=== PATIENT | female | born 1960 | race Two or more races ===

== ENCOUNTER → 2018-01-18 | Outpatient (CLI) | payer OTHER ==
[~2018-01-18] MED LIST: ALBU90I INH; ALBU90OI; ALBU90OI61 INH; ALBUTEROL; Albuterol2.5 MG/0.5 HHN; CEPH500 PO; CIPR500 PO; CYCL10; CYCL10 PO; DIPH50 PO; DOC250 PO; HYDACE25S PR; HYDACE5 PO; HYDACE5325 PO; HYDCHL50 PO; IBUP800 PO; LEVFLO500 PO; LISHYD2025 PO; LISI10; LISI20 PO; METF500; METO100ER PO; METO50 PO; Mobic15 MG PO; NAPR500 PO; NAPR550 PO; OMEP20ER PO; OXYACE5T PO; PENVK500 PO; PRAV20 PO; PRED20 PO; RXALBOI INH; RXHYDACE PO; RXNAPNA550 PO; RXPROM25 PO; SULTRIDS PO; TRAM50 PO; Veetids 500500 MG PO
[2018-01-21 12:10] LABS: HPV Genotype 16 Not Detected (NOTDET); HPV Genotype 18 Not Detected (NOTDET)
[2018-01-23 07:48] LABS: HPV High Risk Other Not Detected (NOTDET)
[2018-01-24 12:23] LABS: Source CERVIX
== END ==
LOC: LAB 11:30 → LAB SHORT 11:30
PROVIDERS: Nurse Practitioner Family
DX: Z12.4 Encounter for screening for malignant neoplasm of cervix (principal)
CPT/HCPCS: 87624; G0145

== ENCOUNTER 2018-02-25 13:02 | Emergency (ER) | payer OTHER ==
[~2018-02-25] VITALS: Ht 167.6 cm; Wt 107.0 kg
[2018-02-25 17:32] LABS: BASOPHILS ABSOLUTE AUTO 0.04 K/mm3 (0.00-0.23); BASOPHILS PERCENT AUTO 0 % (0-2); EOSINOPHILS ABSOLUTE AUTO 0.01 K/mm3 (0.00-0.68); EOSINOPHILS PERCENT AUTO 0 % (0-6); Hematocrit 39.6 % (33.0-51.0); Hemoglobin 13.1 g/dL (11.5-16.0); IMMATURE GRAN ABSOLUTE AUTO 0.13 K/mm3 (0.00-0.10); IMMATURE GRAN PERCENT AUTO 1 % (0-1); LYMPHOCYTES ABSOLUTE AUTO 3.85 K/mm3 (0.84-5.20); LYMPHOCYTES PERCENT AUTO 18 % (21-46); MONOCYTES ABSOLUTE AUTO 1.16 K/mm3 (0.16-1.47); MONOCYTES PERCENT AUTO 6 % (4-13); Mean Corpuscular HGB 30.8 pg (26.0-34.0); Mean Corpuscular HGB Conc 33.1 g/dL (31.5-36.5); Mean Corpuscular Volume 93 fL (80-100); Mean Platelet Volume 11.2 fL (9.1-12.4); NEUTROPHILS ABSOLUTE AUTO 15.83 K/mm3 (1.96-9.15); NEUTROPHILS PERCENT AUTO 75 % (41-73); Platelet Count 252 K/mm3 (150-400); RDW Coefficient Variation 12.3 % (11.7-14.2); Red Blood Cell Count 4.25 M/mm3 (3.80-5.20); White Blood Cell Count 21.02 K/mm3 (4.00-11.30)
[2018-02-25 17:52] LABS: Albumin, Blood 3.7 g/dL (3.4-5.0); Albumin/Globulin Ratio 0.9 (0.8-1.8); Bilirubin, Total 0.3 mg/dL (0.1-1.0); Bun/Creatinine Ratio 32.4 (12.0-20.0); Calcium, Blood 10.1 mg/dL (8.5-10.1); Creatinine, Blood 1.11 mg/dL (0.40-1.00); Globulin, Blood 4.2 g/dL (2.2-4.0); Potassium, Blood 4.6 mmol/L (3.5-5.5); Total Protein, Blood 7.9 g/dL (6.4-8.2)
[2018-02-25] MEDS ORDERED: Zithromax250 MG PO (19:13)
== END 2018-02-25 21:01 | disposition home or self-care (01) ==
LOC: ER 13:02
PROVIDERS: Emergency Medicine
DX: J40 Bronchitis, not specified as acute or chronic (principal); J18.9 Pneumonia, unspecified organism; I10 Essential (primary) hypertension; F17.210 Nicotine dependence, cigarettes, uncomplicated; Z91.038 Other insect allergy status; Z91.040 Latex allergy status; Z79.899 Other long term (current) drug therapy; Z79.84 Long term (current) use of oral hypoglycemic drugs
CPT/HCPCS: 36415; 71046; 80053; 85025; 94640; 94644; 96360; 99285; J7030

== ENCOUNTER 2018-03-25 23:42 | Emergency (ER) | payer OTHER ==
[~2018-03-25] VITALS: Ht 167.6 cm; Wt 108.9 kg
[~2018-03-25 23:42] MED LIST changes: +Zithromax250 MG PO
== END 2018-03-26 06:05 | disposition home or self-care (01) ==
LOC: ER 23:42
DX: M25.561 Pain in right knee (principal); I10 Essential (primary) hypertension; J45.909 Unspecified asthma, uncomplicated; F17.210 Nicotine dependence, cigarettes, uncomplicated; Z91.030 Bee allergy status; Z91.040 Latex allergy status; Z79.899 Other long term (current) drug therapy; Z79.84 Long term (current) use of oral hypoglycemic drugs
CPT/HCPCS: 93971; 99284

== ENCOUNTER → 2019-02-25 | Outpatient (CLI) | payer OTHER ==
[2019-02-25 18:15] LABS: BASOPHILS ABSOLUTE AUTO 0.05 K/mm3 (0.00-0.23); BASOPHILS PERCENT AUTO 0 % (0-2); EOSINOPHILS ABSOLUTE AUTO 0.13 K/mm3 (0.00-0.68); EOSINOPHILS PERCENT AUTO 1 % (0-6); Hematocrit 42.8 % (33.0-51.0); Hemoglobin 13.8 g/dL (11.5-16.0); IMMATURE GRAN ABSOLUTE AUTO 0.06 K/mm3 (0.00-0.10); IMMATURE GRAN PERCENT AUTO 0 % (0-1); LYMPHOCYTES ABSOLUTE AUTO 3.61 K/mm3 (0.84-5.20); LYMPHOCYTES PERCENT AUTO 26 % (21-46); MONOCYTES ABSOLUTE AUTO 1.05 K/mm3 (0.16-1.47); MONOCYTES PERCENT AUTO 8 % (4-13); Mean Corpuscular HGB 29.8 pg (26.0-34.0); Mean Corpuscular HGB Conc 32.2 g/dL (31.5-36.5); Mean Corpuscular Volume 92 fL (80-100); Mean Platelet Volume 11.5 fL (9.1-12.4); NEUTROPHILS ABSOLUTE AUTO 9.08 K/mm3 (1.96-9.15); NEUTROPHILS PERCENT AUTO 65 % (41-73); Platelet Count 267 K/mm3 (150-400); RDW Coefficient Variation 13.3 % (11.7-14.2); RDW Standard Deviation 45.1 fL (35.1-46.3); Red Blood Cell Count 4.63 M/mm3 (3.80-5.20); White Blood Cell Count 13.98 K/mm3 (4.00-11.30)
== END | disposition home or self-care (01) ==
LOC: LAB SHORT 17:04 → LAB 17:04
PROVIDERS: Nurse Practitioner
DX: M13.871 Other specified arthritis, right ankle and foot (principal)
CPT/HCPCS: 84550; 85025; 85651

== ENCOUNTER → 2019-11-14 | Outpatient (CLI) | payer OTHER ==
[2019-11-14 14:11] LABS: Microalb/Creat Ratio UR, Rand 4.956 mg/g (0.000-30.000); Microalbumin, Random Urine 5.65 mg/L (0.000-20.000)
== END | disposition home or self-care (01) ==
LOC: LAB 09:15 → LAB SHORT 09:15
PROVIDERS: Nurse Practitioner Family
DX: E11.9 Type 2 diabetes mellitus without complications (principal)
CPT/HCPCS: 82043; 82570

== ENCOUNTER 2023-03-22 15:58 | Emergency (ER) | payer MEDICARE, OTHER ==
[~2023-03-22] VITALS: Ht 165.1 cm; Wt 101.6 kg
[2023-03-22 16:21] LABS: BASOPHILS ABSOLUTE AUTO 0.05 K/mm3 (0.00-0.23); BASOPHILS PERCENT AUTO 0 % (0-2); EOSINOPHILS ABSOLUTE AUTO 0.04 K/mm3 (0.00-0.68); EOSINOPHILS PERCENT AUTO 0 % (0-6); Hematocrit 43.5 % (33.0-51.0); Hemoglobin 14.9 g/dL (11.5-16.0); IMMATURE GRAN ABSOLUTE AUTO 0.06 K/mm3 (0.00-0.10); IMMATURE GRAN PERCENT AUTO 0 % (0-1); LYMPHOCYTES ABSOLUTE AUTO 3.91 K/mm3 (0.84-5.20); LYMPHOCYTES PERCENT AUTO 25 % (21-46); MONOCYTES ABSOLUTE AUTO 0.85 K/mm3 (0.16-1.47); MONOCYTES PERCENT AUTO 6 % (4-13); Mean Corpuscular HGB 29.9 pg (26.0-34.0); Mean Corpuscular HGB Conc 34.3 g/dL (31.5-36.5); Mean Corpuscular Volume 87 fL (80-100); Mean Platelet Volume 10.8 fL (9.1-12.4); NEUTROPHILS ABSOLUTE AUTO 10.58 K/mm3 (1.96-9.15); NEUTROPHILS PERCENT AUTO 68 % (41-73); Platelet Count 253 K/mm3 (150-400); RDW Coefficient Variation 12.6 % (11.7-14.2); RDW Standard Deviation 40.5 fL (35.1-46.3); Red Blood Cell Count 4.98 M/mm3 (3.80-5.20); White Blood Cell Count 15.49 K/mm3 (4.00-11.30)
[2023-03-22 16:47] LABS: Albumin, Blood 3.5 g/dL (3.4-5.0); Albumin/Globulin Ratio 0.9 (0.8-1.8); Bilirubin, Total 0.3 mg/dL (0.1-1.0); Calcium, Blood 9.2 mg/dL (8.5-10.1); Creatinine, Blood 1.09 mg/dL (0.40-1.00); Globulin, Blood 4.1 g/dL (2.2-4.0); Potassium, Blood 4.2 mmol/L (3.5-5.5); Total Protein, Blood 7.6 g/dL (6.4-8.2)
[2023-03-22 18:48] LABS: Source, Urine Clean Catch
[2023-03-22] MEDS ORDERED: ATOR10 PO (19:21)
[2023-03-22] MEDS ORDERED: OMEP20ER PO (19:21)
[2023-03-22 19:25] LABS: Appearance, Urine Clear (Clear); Blood, Urine Neg (Neg); Color, Urine Yellow (P-Yellow); Glucose Qualitative, Urine Neg (Neg); Ketones, Urine Neg (Neg); Leukocyte Esterase, Urine 2+ (Neg); Nitrite, Urine Neg (Neg); Protein, Urine 2+ (Neg); Urobilinogen, Urine 1+ (Normal)
[2023-03-22 20:02] LABS: Bilirubin, Urine 1+ (Neg)
[2023-03-22 20:04] LABS: Amorphous Light (0-Heavy); Bacteria Few /hpf; Red Blood Cells, Urine Not Seen /hpf (0-2); Squamous Epithelial Cells Few /hpf (Few)
[2023-03-22 21:30] VITALS: BP 108/71
[2023-03-22] MEDS ORDERED: ONDA4 PO (22:28)
[2023-03-22] MEDS ORDERED: OXAYDO5 M1 PO (22:28)
[2023-03-22] MEDS ORDERED: METO10 PO (22:28)
== END 2023-03-22 22:40 | disposition home or self-care (01) ==
LOC: ER 15:58
PROVIDERS: Student in an Organized Health Care Education/Training Program
DX: R10.32 Left lower quadrant pain (principal); R11.0 Nausea; R63.4 Abnormal weight loss; K76.9 Liver disease, unspecified; R59.0 Localized enlarged lymph nodes; I10 Essential (primary) hypertension; F17.210 Nicotine dependence, cigarettes, uncomplicated; Z79.899 Other long term (current) drug therapy; Z79.84 Long term (current) use of oral hypoglycemic drugs; Z91.030 Bee allergy status; Z91.040 Latex allergy status; J45.909 Unspecified asthma, uncomplicated
CPT/HCPCS: 74177; 80053; 81001; 83690; 85025; 96361; 96374-59; 96375; 99284-25; A9270; J1885; J2405; J7030; Q9967

== ENCOUNTER → 2023-04-20 | Outpatient (CLI) | payer MEDICARE, OTHER ==
[~2023-04-20] MED LIST changes: +ATOR10 PO; +DONEPEZIL HCL10 M1 PO; +MEMA10 PO; -METF500; +METF500 PO; +METO10 PO; +MODAFINIL100 M4 PO; +NEURONTIN300 MG PO; +ONDA4 PO; +OXAYDO5 M1 PO
== END | disposition home or self-care (01) ==
LOC: LAB 10:45 → LAB SHORT 10:45
PROVIDERS: Internal Medicine Hematology & Oncology
DX: K76.9 Liver disease, unspecified (principal)
CPT/HCPCS: 81050

== ENCOUNTER → 2023-05-26 | Outpatient (CLI) | payer MEDICARE, OTHER ==
[2023-05-26 19:57] LABS: Albumin/Globulin Ratio 0.6 (0.8-1.8); Bilirubin, Total 0.2 mg/dL (0.1-1.0); Bun/Creatinine Ratio 17.8 (12.0-20.0); Calcium, Blood 9.3 mg/dL (8.5-10.1); Creatinine, Blood 0.62 mg/dL (0.40-1.00); Globulin, Blood 4.8 g/dL (2.2-4.0); Potassium, Blood 4.1 mmol/L (3.5-5.5); Total Protein, Blood 7.8 g/dL (6.4-8.2)
== END ==
LOC: LAB 17:02 → LAB SHORT 17:02
PROVIDERS: Nurse Practitioner Family
DX: R11.2 Nausea with vomiting, unspecified (principal); Z79.899 Other long term (current) drug therapy
CPT/HCPCS: 80053; 83036

== ENCOUNTER 2023-06-05 11:43 | Inpatient (IN) | payer MEDICARE, OTHER ==
[~2023-06-05] VITALS: Ht 167.6 cm; Wt 95.9 kg
[2023-06-05 12:30] LABS: BASOPHILS ABSOLUTE AUTO 0.05 K/mm3 (0.00-0.23); BASOPHILS PERCENT AUTO 1 % (0-2); EOSINOPHILS ABSOLUTE AUTO 0.07 K/mm3 (0.00-0.68); EOSINOPHILS PERCENT AUTO 1 % (0-6); Hematocrit 43.6 % (33.0-51.0); Hemoglobin 14.6 g/dL (11.5-16.0); IMMATURE GRAN ABSOLUTE AUTO 0.03 K/mm3 (0.00-0.10); IMMATURE GRAN PERCENT AUTO 0 % (0-1); LYMPHOCYTES ABSOLUTE AUTO 1.76 K/mm3 (0.84-5.20); LYMPHOCYTES PERCENT AUTO 16 % (21-46); MONOCYTES ABSOLUTE AUTO 0.78 K/mm3 (0.16-1.47); MONOCYTES PERCENT AUTO 7 % (4-13); Mean Corpuscular HGB 29.6 pg (26.0-34.0); Mean Corpuscular HGB Conc 33.5 g/dL (31.5-36.5); Mean Corpuscular Volume 88 fL (80-100); NEUTROPHILS ABSOLUTE AUTO 8.09 K/mm3 (1.96-9.15); NEUTROPHILS PERCENT AUTO 75 % (41-73); Platelet Count 238 K/mm3 (150-400); RDW Coefficient Variation 12.3 % (11.7-14.2); RDW Standard Deviation 40.1 fL (35.1-46.3); Red Blood Cell Count 4.93 M/mm3 (3.80-5.20); White Blood Cell Count 10.78 K/mm3 (4.00-11.30)
[2023-06-05 12:49] LABS: Albumin, Blood 2.9 g/dL (3.4-5.0); Albumin/Globulin Ratio 0.7 (0.8-1.8); Bilirubin, Total 0.5 mg/dL (0.1-1.0); Bun/Creatinine Ratio 15.6 (12.0-20.0); Calcium, Blood 8.8 mg/dL (8.5-10.1); Creatinine, Blood 0.77 mg/dL (0.40-1.00); Globulin, Blood 4.2 g/dL (2.2-4.0); Potassium, Blood 4.1 mmol/L (3.5-5.5); Total Protein, Blood 7.1 g/dL (6.4-8.2)
[2023-06-05] MEDS ORDERED: OXYC10TA19 PO (16:53)
[2023-06-05] MEDS ORDERED: MELA3 PO (16:54)
[2023-06-05] MEDS ORDERED: METO5A PO (16:54)
[2023-06-05] MEDS ORDERED: FENTANYL1 EAC7 TOP (16:55)
[2023-06-05] MEDS ORDERED: DIAZ10 PO (16:55)
[2023-06-05 23:53] VITALS: BP 117/80
[2023-06-06 03:03] VITALS: BP 109/74
--- NOTE | 2023-06-06 04:08 | NUR ---
SHIFT SUMMARY ER ADMIT. PATIENT ALERT AND ORIENTED BUT OCCASIONALLY FORGETFUL. BEDREST AT THIS TIME. FENTANYL PATCH TO LEFT UPPER ARM, OXYCODONE X1 FOR BREAKTHROUGH PAIN. DENIES NAUSEA AND SHORTNESS OF BREATH. CONSULT CALLED TO DR. MAX ANSWERING SERVICE. SON AT BEDSIDE. PLEASANT AND COOPERATIVE WITH CARE.
[2023-06-06 07:20] VITALS: BP 114/79
[2023-06-06] MEDS ORDERED: MIRALAX17 GM PO (08:54)
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
--- NOTE | 2023-06-06 12:51 | NUR ---
PATIENT IN MRI PRESENTLY, DAUGHTER IN ROOM WAITING FOR HER TO COME BACK
[2023-06-06 15:11] VITALS: BP 115/97
--- NOTE | 2023-06-06 18:35 | NUR ---
TOBACCO POLICY REVEIWED WITH SON AND PATIENT, BOTH WERE VERY UPSET AND THINKING THE PATIENT COULD BE ROLLED OUTSIDE TO SMOKE, BOTH STATED THEY HAVE IGNITION DEVICES AND TOBACCO, RE-EDUCATED THE IMPROTANCE OF NO IGNITION DEVICES OR TOBACCO PRODUCTS ON [facility] IS A TOBACCO FREE ZONE. PATIENT AND SON RELUCTANT TO ANY EDUCATION OR EXPLAINATION OF THESE POLICES, REPORTED TO TRANSMISSION REBUILDER. SON BODY LANGUAGE VERY FORCEFUL, PACING BACK AND FORTH AND DEMAND NEEDS FROM STAFF, STATING "THIS IS HOW CARE IS??", SON VERY IMPATIENT AND DEMANDING. THE NEED FOR HOME MEDICATIONS TO GO HOME AND MED REC WAS DONE, BOTH PATIENT AND SON RELUCTANT TO TAKE HOME MEDICATION HOME, BOTH STATED HER HOME OXYCODONE'S ARE IN THE ROOM, THIS RN EDUCATED THE IMPORTANCE OF NOT ACCIDENTALY DOUBLE DOSING, ASKED THE SON TO TAKE HOME MEDICATIONS HOME. REPORTED TO TRANSMISSION REBUILDER SON LEFT AT 1100 AND LET OF THE COMMUNICATION BOARD "BE GOOD TO MY MOM OR ELSE!!!!, SON". SON AND PATIENT MORE COMFORTED AND PLEASANT PRESENTLY, VERY ANXIOUS AND AGGITATED WITH INTERVETIONS AND MEDICATIONS. TRANSMISSION REBUILDER AND DR ASA ARCOS.
--- NOTE | 2023-06-06 18:44 | NUR ---
SON AND DAUGHTER AT BEDSIDE, PATIENT AND FAMILY PLEASANT TO CARE NOW, EASILY INCREASED WITH ANXIETY AND REGULATIONS OF THE HOSPITAL, CODING FILE CLERK AWARE. PATIENT WITHDRAWN AND FORGETFUL, POOR LUNG CAPACITY, SATS RA 95%, SHALLOW SLOW RESPIRATIONS, ABD DISTENDED PATIENT STATES ITS HER NORM, PERIWIK IN PLACE, URINE ORANGE AND UNABLE TO SEE THROUGH, PATIENT HAD A MRI OF THE HEAD TODAY, DR'S HAVE NOT ROUNDED TO REPORT THE RESULTS, DR MAX SERVICE CALL AGAIN TO UNSURE THE CONSULT WENT THROUGH. DR BRAY ROUNDED ON PATIENT. PATIENT STOOD AT BEDSIDE TO CHANGE SHEETS, GAIT BELT AND WALKER USED, PT/OT ORDER IN BUT HAS NOT SEEN YET, MEDICATED WITH OXYCODONE X2, VALUIM X2, AND FLEXERIL. PATIENT USES CALL LIGHT APPROPRIATELY, MAKES NEEDS KNOWN, CALL LIGHT WITH IN REACH, WILL RELAY TO PM RN
[2023-06-06 19:22] VITALS: BP 109/72
[2023-06-07 03:30] VITALS: BP 119/80
--- NOTE | 2023-06-07 06:18 | NUR ---
PATIENT A/OX4, SLOW TO RESPOND AT TIMES. SON AT BEDSIDE AND DIRECTS CARE AND ANSWERS QUESTIONS FOR PATIENT WHEN STAFF IS SPEAKING TO PATIENT. PATIENT HAS FENANYL PATCH IN PLACE, OXYCODONE USED TO TREAT BREAKTHROUGH PAIN. PATIENT UP TO BSC WITH 2 ASSIST AND FWW AND HAD A LARGE BM. PUREWICK IN PLACE FOR URINATION. SON VERY ADAMENT THAT PATIENT BE MEDICATED Q4 HOURS WITH OXYCODONE, EXPLAINED TO HIM THAT IT WAS NOT PROCEDURE TO WAKE PATIENT FOR PRN MEDICATIONS WHEN PATIENT APPEARS TO BE IN NO DISTRESS AND RESTING COMFORTABLY. ATTEMPTED TO EXPLAIN THAT PATIENT HAD A FENTANYL PATCH FOR PAIN CONTROL SO THAT SHE WAS ABLE TO SLEEP THROUGH THE NIGHT. SON PRECEEDED TO WAKE PATIENT AND SHE STATED THAT SHE DID WANT HER OXYCODONE. VSS THIS SHIFT, REMAINS ON RA. PATIENT SLEPT WELL THROUGHOUT THE NIGHT.
[2023-06-07 07:53] VITALS: BP 142/92
[2023-06-07] MEDS ORDERED: DECADRON4 M1 PO (13:44)
--- NOTE | 2023-06-07 13:49 | NUR ---
Spiritual care visit conducted. Patient is sitting up in bed and has several family members and a dog present in the rm. Patient's son and patient explain about the unfortunate progression of the cancer and how it has felt like gut-punch to the patient and the family. They explain about their intentions to keep taking a step at a time and to lean into God and their family as they follow medical advice on what to do. They state that they may d/c home today and patietn is looking forward to being home. I provide therapeutic listening, gentle job placement counselor and prayer. Patient and family responded well and showed signs of elevated spirits and improved hope.
--- NOTE | 2023-06-07 14:21 | NUR ---
DISCHARGE SUMMARY PT AxOx4. PLEASANT AND COOPERATIVE WITH CARE. PT REPORTS FEELING PAINFUL T/O THE DAY. PT R/T CANCER W/METS. PT WAS MEDICATED PER EMAR, WITH REPORTED RELIEF. PT'S FAMILY IN ROOM FOR SUPPORT, WHOM SHE IS DISCHARGING HOME WITH TODAY. PT WORKED WITH PHYSICAL THERAPY THIS SHIFT. SHE IS STILL VERY WEAK WITH UNSTEADY GAIT AND SLOWED/PAINFUL MOVEMENTS. PT, SON, AND DAUGHTER WERE PROVIDED DC INSTRUCTIONS INCLUDING DC MEDICATION LIST WITH NEW MEDS FAXED TO [facility] AND HARD COPY RX'S PROVIDED TO PT. PT WAS ALSO MADE AWARE THAT D/T THE HOLIDAY TODAY (), SHE WILL NEED TO MAKE FOLLOW UP APPOINTMENTS WITH ONCOLOGIST AND PCP WHEN OFFICES REOPEN TOMORROW. HOME HEALTH WILL CONTACT THEM FOR EVALUATION AFTER THEY GET HOME. PT WAS ALSO PROVIDED EDUCATION ON NEW MEDS AND DIAGNOSES. PT AND FAMILY ALL VERBALIZED UNDERSTANDING AND ALL QUESTIONS WERE ANSWERED. PT WAS SAFELY ESCORTED OUT VIA WC WITH BOILERS INSPECTOR AND FAMILY AT HER SIDE.
== END 2023-06-07 14:31 | disposition home health service (06) | DRG 54 ==
LOC: ER 11:43 → MEDS 21:01 → ENPENDDIS 06-07 11:36 → MEDS 06-07 14:31
PROVIDERS: Emergency Medicine; ADMIT Internal Medicine
DX: C79.31 Secondary malignant neoplasm of brain (principal); G93.6 Cerebral edema; C78.7 Secondary malignant neoplasm of liver and intrahepatic bile duct; G91.1 Obstructive hydrocephalus; C7A.8 Other malignant neuroendocrine tumors; W18.30XA Fall on same level, unspecified, initial encounter; R26.81 Unsteadiness on feet; I10 Essential (primary) hypertension; J45.909 Unspecified asthma, uncomplicated; M19.90 Unspecified osteoarthritis, unspecified site; G30.9 Alzheimer's disease, unspecified; F02.80 Dementia in other diseases classified elsewhere, unspecified severity, without behavioral disturbance, psychotic disturbance, mood disturbance, and anxiety; S09.90XA Unspecified injury of head, initial encounter; S70.01XA Contusion of right hip, initial encounter; F17.210 Nicotine dependence, cigarettes, uncomplicated; Z91.040 Latex allergy status; Z91.038 Other insect allergy status; Z98.890 Other specified postprocedural states; Z79.899 Other long term (current) drug therapy; Z79.51 Long term (current) use of inhaled steroids; Z79.891 Long term (current) use of opiate analgesic; Z85.118 Personal history of other malignant neoplasm of bronchus and lung
CPT/HCPCS: 70450; 70553; 72125; 73502; 80053; 84484; 85025; 93005; 93010; 94760; 96374; 97110; 97162; 99285-25; A9270; A9579; J1100; J1650; J3360

== ENCOUNTER 2023-06-15 14:09 | Emergency (ER) | payer MEDICARE, OTHER ==
[~2023-06-15] VITALS: Ht 165.1 cm; Wt 95.2 kg
[~2023-06-15 14:09] MED LIST changes: +DECADRON4 M1 PO; +DIAZ10 PO; +FENTANYL1 EAC7 TOP; +MELA3 PO; +METO5A PO; +MIRALAX17 GM PO; +OXYC10TA19 PO
[2023-06-15 16:13] LABS: BASOPHILS ABSOLUTE AUTO 0.08 K/mm3 (0.00-0.23); BASOPHILS PERCENT AUTO 0 % (0-2); EOSINOPHILS ABSOLUTE AUTO 0.04 K/mm3 (0.00-0.68); EOSINOPHILS PERCENT AUTO 0 % (0-6); Hematocrit 49.9 % (33.0-51.0); Hemoglobin 17.3 g/dL (11.5-16.0); IMMATURE GRAN ABSOLUTE AUTO 0.38 K/mm3 (0.00-0.10); IMMATURE GRAN PERCENT AUTO 2 % (0-1); LYMPHOCYTES ABSOLUTE AUTO 1.27 K/mm3 (0.84-5.20); LYMPHOCYTES PERCENT AUTO 7 % (21-46); MONOCYTES ABSOLUTE AUTO 0.76 K/mm3 (0.16-1.47); MONOCYTES PERCENT AUTO 4 % (4-13); Mean Corpuscular HGB 29.7 pg (26.0-34.0); Mean Corpuscular HGB Conc 34.7 g/dL (31.5-36.5); Mean Corpuscular Volume 86 fL (80-100); Mean Platelet Volume 11.1 fL (9.1-12.4); NEUTROPHILS PERCENT AUTO 87 % (41-73); Platelet Count 274 K/mm3 (150-400); RDW Coefficient Variation 12.3 % (11.7-14.2); RDW Standard Deviation 37.9 fL (35.1-46.3); Red Blood Cell Count 5.83 M/mm3 (3.80-5.20); White Blood Cell Count 19.43 K/mm3 (4.00-11.30)
[2023-06-15 16:31] LABS: Albumin, Blood 3.3 g/dL (3.4-5.0); Albumin/Globulin Ratio 0.7 (0.8-1.8); Bilirubin, Total 0.7 mg/dL (0.1-1.0); Bun/Creatinine Ratio 41.9 (12.0-20.0); Calcium, Blood 9.8 mg/dL (8.5-10.1); Creatinine, Blood 0.6 mg/dL (0.40-1.00); Globulin, Blood 4.6 g/dL (2.2-4.0); Potassium, Blood 5.6 mmol/L (3.5-5.5); Total Protein, Blood 7.9 g/dL (6.4-8.2)
[2023-06-15 16:43] LABS: Source, Urine Clean Catch
[2023-06-15 16:50] LABS: Blood, Urine Neg (Neg); Color, Urine Yellow (P-Yellow); Glucose Qualitative, Urine Neg (Neg); Ketones, Urine Neg (Neg); Leukocyte Esterase, Urine Neg (Neg); Nitrite, Urine Neg (Neg); Protein, Urine 2+ (Neg); Urobilinogen, Urine NORM (Normal)
[2023-06-15 17:10] LABS: Bilirubin, Urine 2+ (Neg)
[2023-06-15 17:11] LABS: Appearance, Urine Clear (Clear)
[2023-06-15 17:12] LABS: Bacteria Few /hpf; Mucus Light (0-Heavy); Red Blood Cells, Urine 0-2 /hpf (0-2); Squamous Epithelial Cells Few /hpf (Few); White Blood Cells, Urine 0-2 /hpf (0-5)
[2023-06-15 18:06] LABS: International Normalized Ratio 1.05
[2023-06-15 18:17] LABS: Thyroid Stimulating Hormone 0.132 uIU/mL (0.360-4.800)
[2023-06-15 19:53] LABS: Influenza A, PCR NEGATIVE (NEGATIVE); Influenza B, PCR NEGATIVE (NEGATIVE); Resp Syncytial Virus, PCR NEGATIVE (NEGATIVE); SARS-Cov-2 (COVID-19) PCR, MMC NEGATIVE (NEGATIVE)
[2023-06-16 00:16] VITALS: BP 143/97
== END 2023-06-16 01:00 | disposition short-term general hospital (02) ==
LOC: ER 14:09
PROVIDERS: Emergency Medicine; Physician Assistant
DX: G91.1 Obstructive hydrocephalus (principal); C22.8 Malignant neoplasm of liver, primary, unspecified as to type; C79.31 Secondary malignant neoplasm of brain; I10 Essential (primary) hypertension; J45.909 Unspecified asthma, uncomplicated; G30.9 Alzheimer's disease, unspecified; F02.80 Dementia in other diseases classified elsewhere, unspecified severity, without behavioral disturbance, psychotic disturbance, mood disturbance, and anxiety; F17.210 Nicotine dependence, cigarettes, uncomplicated; Z20.822 Contact with and (suspected) exposure to COVID-19; Z91.040 Latex allergy status; Z79.899 Other long term (current) drug therapy
CPT/HCPCS: 0241U; 70450; 71046; 80053; 81001; 83735; 84100; 84145; 84443; 85025; 85610; 85730; 93005; 93010; 96374; 99285-25; A9270; J1885

== ENCOUNTER 2023-07-19 12:33 | Emergency (ER) | payer MEDICARE, OTHER ==
[~2023-07-19] VITALS: Ht 165.1 cm; Wt 87.1 kg
[2023-07-19 13:32] LABS: BASOPHILS ABSOLUTE AUTO 0.05 K/mm3 (0.00-0.23); BASOPHILS PERCENT AUTO 0 % (0-2); EOSINOPHILS ABSOLUTE AUTO 0.01 K/mm3 (0.00-0.68); EOSINOPHILS PERCENT AUTO 0 % (0-6); Hematocrit 44.2 % (33.0-51.0); IMMATURE GRAN ABSOLUTE AUTO 0.13 K/mm3 (0.00-0.10); IMMATURE GRAN PERCENT AUTO 1 % (0-1); LYMPHOCYTES ABSOLUTE AUTO 2.12 K/mm3 (0.84-5.20); LYMPHOCYTES PERCENT AUTO 19 % (21-46); MONOCYTES ABSOLUTE AUTO 0.87 K/mm3 (0.16-1.47); MONOCYTES PERCENT AUTO 8 % (4-13); Mean Corpuscular HGB Conc 33.9 g/dL (31.5-36.5); Mean Corpuscular Volume 86 fL (80-100); Mean Platelet Volume 10.3 fL (9.1-12.4); NEUTROPHILS ABSOLUTE AUTO 8.17 K/mm3 (1.96-9.15); NEUTROPHILS PERCENT AUTO 72 % (41-73); Platelet Count 298 K/mm3 (150-400); RDW Coefficient Variation 12.9 % (11.7-14.2); RDW Standard Deviation 39.4 fL (35.1-46.3); Red Blood Cell Count 5.17 M/mm3 (3.80-5.20); White Blood Cell Count 11.35 K/mm3 (4.00-11.30)
[2023-07-19 13:48] LABS: Albumin, Blood 2.9 g/dL (3.4-5.0); Albumin/Globulin Ratio 0.5 (0.8-1.8); Bilirubin, Total 0.5 mg/dL (0.1-1.0); Calcium, Blood 9.3 mg/dL (8.5-10.1); Creatinine, Blood 0.85 mg/dL (0.40-1.00); Globulin, Blood 5.3 g/dL (2.2-4.0); Potassium, Blood 3.6 mmol/L (3.5-5.5); Total Protein, Blood 8.2 g/dL (6.4-8.2)
[2023-07-19 18:00] VITALS: BP 118/82
== END 2023-07-19 18:42 | disposition home or self-care (01) ==
LOC: ER 12:33
PROVIDERS: Physician Assistant
DX: Z48.811 Encounter for surgical aftercare following surgery on the nervous system (principal); I10 Essential (primary) hypertension; J45.909 Unspecified asthma, uncomplicated; G30.9 Alzheimer's disease, unspecified; F02.80 Dementia in other diseases classified elsewhere, unspecified severity, without behavioral disturbance, psychotic disturbance, mood disturbance, and anxiety; C79.31 Secondary malignant neoplasm of brain; F17.210 Nicotine dependence, cigarettes, uncomplicated; Z79.899 Other long term (current) drug therapy; Z91.030 Bee allergy status
CPT/HCPCS: 70450; 80053; 85025; 99283-25

== ENCOUNTER 2023-07-27 12:47 | Observation (INO) | payer MEDICARE, OTHER ==
[~2023-07-27] VITALS: Ht 162.6 cm; Wt 86.0 kg
[2023-07-27 13:30] LABS: BASOPHILS ABSOLUTE AUTO 0.05 K/mm3 (0.00-0.23); BASOPHILS PERCENT AUTO 0 % (0-2); EOSINOPHILS ABSOLUTE AUTO 0.01 K/mm3 (0.00-0.68); EOSINOPHILS PERCENT AUTO 0 % (0-6); Hematocrit 44.7 % (33.0-51.0); Hemoglobin 15.2 g/dL (11.5-16.0); IMMATURE GRAN ABSOLUTE AUTO 0.07 K/mm3 (0.00-0.10); IMMATURE GRAN PERCENT AUTO 1 % (0-1); LYMPHOCYTES ABSOLUTE AUTO 2.01 K/mm3 (0.84-5.20); LYMPHOCYTES PERCENT AUTO 15 % (21-46); MONOCYTES ABSOLUTE AUTO 1.03 K/mm3 (0.16-1.47); MONOCYTES PERCENT AUTO 8 % (4-13); Mean Corpuscular HGB 28.8 pg (26.0-34.0); Mean Corpuscular Volume 85 fL (80-100); Mean Platelet Volume 11.2 fL (9.1-12.4); NEUTROPHILS ABSOLUTE AUTO 10.33 K/mm3 (1.96-9.15); NEUTROPHILS PERCENT AUTO 77 % (41-73); Platelet Count 324 K/mm3 (150-400); RDW Coefficient Variation 13.2 % (11.7-14.2); Red Blood Cell Count 5.27 M/mm3 (3.80-5.20)
[2023-07-27 14:17] LABS: Albumin/Globulin Ratio 0.6 (0.8-1.8); Bilirubin, Total 0.5 mg/dL (0.1-1.0); Bun/Creatinine Ratio 17.4 (12.0-20.0); Calcium, Blood 9.6 mg/dL (8.5-10.1); Creatinine, Blood 0.86 mg/dL (0.40-1.00); Globulin, Blood 5.4 g/dL (2.2-4.0); Magnesium, Blood 1.5 mg/dL (1.6-2.4); Potassium, Blood 3.5 mmol/L (3.5-5.5); Total Protein, Blood 8.4 g/dL (6.4-8.2)
[2023-07-27 20:05] LABS: Influenza A, PCR NEGATIVE (NEGATIVE); Influenza B, PCR NEGATIVE (NEGATIVE); Resp Syncytial Virus, PCR NEGATIVE (NEGATIVE); SARS-Cov-2 (COVID-19) PCR, MMC NEGATIVE (NEGATIVE)
[2023-07-27 23:57] LABS: Anti-Xa UFH, PHA Monitoring <0.10 IU/mL; International Normalized Ratio 1.14; Prothrombin Time Results 11.9 Sec (9.7-11.5)
[2023-07-28 01:25] VITALS: BP 107/90
--- NOTE | 2023-07-28 02:38 | NUR ---
ADMIT NOTE LATE ENTRY PT ARRIVED VIA [employer] @ 0110 AND TRANSFERRED TO HOSPITAL BED WITH ASSISTANCE. PT SON AT BEDSIDE. PT AND FAMILY ORIENTED TO ROOM AND EDUCATED ON FIRE SAFETY. PT STATES SHE DOES NOT HAVE ANY IFNITION SOURCES PRESENT. CALL LIGHT WITHIN REACH AND BED KEPT IN THE LOWEST POSITION.
[2023-07-28 05:22] LABS: BASOPHILS ABSOLUTE AUTO 0.05 K/mm3 (0.00-0.23); BASOPHILS PERCENT AUTO 0 % (0-2); EOSINOPHILS ABSOLUTE AUTO 0.02 K/mm3 (0.00-0.68); EOSINOPHILS PERCENT AUTO 0 % (0-6); Hematocrit 40.4 % (33.0-51.0); Hemoglobin 13.7 g/dL (11.5-16.0); IMMATURE GRAN ABSOLUTE AUTO 0.05 K/mm3 (0.00-0.10); IMMATURE GRAN PERCENT AUTO 0 % (0-1); LYMPHOCYTES PERCENT AUTO 21 % (21-46); MONOCYTES ABSOLUTE AUTO 0.93 K/mm3 (0.16-1.47); MONOCYTES PERCENT AUTO 8 % (4-13); Mean Corpuscular HGB 28.8 pg (26.0-34.0); Mean Corpuscular HGB Conc 33.9 g/dL (31.5-36.5); Mean Corpuscular Volume 85 fL (80-100); Mean Platelet Volume 12.2 fL (9.1-12.4); NEUTROPHILS ABSOLUTE AUTO 8.02 K/mm3 (1.96-9.15); NEUTROPHILS PERCENT AUTO 70 % (41-73); Platelet Count 265 K/mm3 (150-400); RDW Coefficient Variation 13.1 % (11.7-14.2); RDW Standard Deviation 40.5 fL (35.1-46.3); Red Blood Cell Count 4.76 M/mm3 (3.80-5.20); White Blood Cell Count 11.47 K/mm3 (4.00-11.30)
--- NOTE | 2023-07-28 05:28 | NUR ---
SHIFT SUMMARY PT A&O X2, COOPERATIVE WITH CARE. FORGETS EASILY. ADMITTED OVERNIGHT. HEPARIN INFUISING @ 18U/KG/HR. PT REQUESTED PAIN MEDS THAT SHE NORMALLY TAKES AT HOME. CALLED DR COX AND ORDER STARTED. PT COMPLAINS OF RIGHT SIDED CHEST PAIN, DENIES SOB, OCCASIONAL COUGH. 1 PERSON ASSIST WITH FFW TO RESTROOM. CONTINENT. BED KEPT IN LOWEST POSITION WITH CALL LIGHT REACH. WILL CONTINUE TO MONITOR.
[2023-07-28 05:31] VITALS: BP 115/72
[2023-07-28 05:41] LABS: Albumin, Blood 2.8 g/dL (3.4-5.0); Albumin/Globulin Ratio 0.6 (0.8-1.8); Bilirubin, Total 0.5 mg/dL (0.1-1.0); Bun/Creatinine Ratio 17.9 (12.0-20.0); Calcium, Blood 9.3 mg/dL (8.5-10.1); Creatinine, Blood 0.84 mg/dL (0.40-1.00); Globulin, Blood 4.7 g/dL (2.2-4.0); Magnesium, Blood 1.8 mg/dL (1.6-2.4); Potassium, Blood 3.6 mmol/L (3.5-5.5); Total Protein, Blood 7.5 g/dL (6.4-8.2)
--- NOTE | 2023-07-28 05:52 | NUR ---
CALLED HOSPITALIST INFORMED HIM OF NEW ELECTROLYTE LAB RESULTS. IVPB HELD, SEE EMAR. WILL CONTINUE TO MONITOR.
[2023-07-28 07:27] VITALS: BP 121/89
--- NOTE | 2023-07-28 17:50 | NUR ---
SHIFT SUMMARY: PT IS A PLEASANT AND COOPERATIVE 62 YEAR FEMALE HERE FOR A PULMONARY EMBOLISM. SHE HAS METATSTATIC CANCER WELL. SHE IS ON ROOMAIR AND DENIES SHORTNESS OF BREATH OR DIFFICULTY BREATHING. HER HEPARIN DRIP WAS D/C'D TODAY AND STARTED ON ELIQUIS. ECHO RESULTS PENDING. SHE IS IN BED, CALL LIGHT WITHIN REACH, NO SIGNS OR SYMPTOMS OF DISTRESS. TREATING PAIN NEEDED. PLAN OF CARE ONGOING.
[2023-07-28 19:24] VITALS: BP 117/88
[2023-07-29 04:21] VITALS: BP 103/82
--- NOTE | 2023-07-29 04:54 | NUR ---
SHIFT SUMMARY REPORT RECEIVED, PT SLEEPING AND DIFFICULT TO AROUSE BUT VITAL SIGNS STABLE. ONCE PT WOKE SHE WAS ABLE TO ANSWER SIMPLE QUESTIONS BUT WAS OBIOUSLY CONFUSED WHICH IS BASELINE FOR NOW. SON CALLED AND EXPLAINED PT HISTORY AND ASKED NOT TO DELAY PAIN MEDS EVEN THOUGH PT STATES SHE HAS NO PAIN. I ASKED PT IF I COULD GIVE HER PAIN MEDS BUT SHE SAID NO, I WASX UNSURE IF PT UNDERSTOOD WHAT i WAS ASKING. 2330 TURNED PT TO SIDE AND PT SHOULD SIGNIFICANT PAIN WHEN MOVING, I THEN KAVITHA PAIN MEDICATION AND PT WAS WILLING TO TAKE. SO FAR PT SLEEPING HEAVELY AND LOOKS VERY COMFORTABLE. FAMILY NEEDS TO DISCUSS POSSIBLE PALLITIVE CARE FOR PT.
[2023-07-29 05:09] LABS: Hematocrit 41.5 % (33.0-51.0); Hemoglobin 13.9 g/dL (11.5-16.0); Mean Corpuscular HGB 28.8 pg (26.0-34.0); Mean Corpuscular HGB Conc 33.5 g/dL (31.5-36.5); Mean Corpuscular Volume 86 fL (80-100); Mean Platelet Volume 11.6 fL (9.1-12.4); Platelet Count 257 K/mm3 (150-400); RDW Coefficient Variation 13.2 % (11.7-14.2); RDW Standard Deviation 41.1 fL (35.1-46.3); Red Blood Cell Count 4.82 M/mm3 (3.80-5.20); White Blood Cell Count 9.91 K/mm3 (4.00-11.30)
[2023-07-29 07:24] VITALS: BP 100/71
[2023-07-29] MEDS ORDERED: ELIQUIS5 M2 PO ×2 (10:31→10:33)
[2023-07-29] MEDS ORDERED: DOCU100 PO (10:32)
[2023-07-29] MEDS ORDERED: MIRALAX17 GM PO (10:32)
--- NOTE | 2023-07-29 13:13 | NUR ---
DISCHARGE NOTE: DISCUSSED DISCHARGE WITH PATIENT'S DAUGHTER WITH PATIENT PRESENT. HER DAUGHTER COLLECTED THE PATIENT'S BELONGINGS, THE PATIENT'S IV WAS REMOVED AND THE PATIENT WAS TRANSFERRED IN A WHEELCHAIR BY THE AMBULATORY CARE. NO SIGNS OR SYMPTOMS OF DISTRESS DURING DISCHARGE.
== END 2023-07-29 13:13 | disposition home health service (06) ==
LOC: ER 12:47 → MEDS 12:48 → ENPENDDIS 07-29 10:49 → MEDS 07-29 13:13
PROVIDERS: Internal Medicine; Physician Assistant; Student in an Organized Health Care Education/Training Program; ADMIT Student in an Organized Health Care Education/Training Program
DX: I26.99 Other pulmonary embolism without acute cor pulmonale (principal); E83.42 Hypomagnesemia; I10 Essential (primary) hypertension; J45.909 Unspecified asthma, uncomplicated; D72.829 Elevated white blood cell count, unspecified; K21.9 Gastro-esophageal reflux disease without esophagitis; C7A.8 Other malignant neuroendocrine tumors; C79.31 Secondary malignant neoplasm of brain; C79.51 Secondary malignant neoplasm of bone; Z11.52 Encounter for screening for COVID-19; C78.00 Secondary malignant neoplasm of unspecified lung; G30.9 Alzheimer's disease, unspecified; F02.80 Dementia in other diseases classified elsewhere, unspecified severity, without behavioral disturbance, psychotic disturbance, mood disturbance, and anxiety; F17.210 Nicotine dependence, cigarettes, uncomplicated; Z91.030 Bee allergy status; Z91.040 Latex allergy status
CPT/HCPCS: 0241U; 36415; 71260; 80053; 82947; 83735; 84443; 84484; 85025; 85027; 85379; 85520; 85610; 85730; 93005; 93010; 93306; 94762; 96365; 96375; 97110; 97116; 97162; 97166; 97530; 99285-25; A9270; G0008; G0378; J1644; J3475; Q2036; Q9967

== ENCOUNTER 2023-08-21 16:23 | Inpatient (IN) | payer MEDICARE, OTHER ==
[~2023-08-21] VITALS: Ht 165.1 cm; Wt 81.1 kg
[~2023-08-21 16:23] MED LIST changes: +DOCU100 PO; +ELIQUIS5 M2 PO
[2023-08-21 16:42] LABS: BASOPHILS ABSOLUTE AUTO 0.03 K/mm3 (0.00-0.23); BASOPHILS PERCENT AUTO 0 % (0-2); EOSINOPHILS ABSOLUTE AUTO 0.02 K/mm3 (0.00-0.68); EOSINOPHILS PERCENT AUTO 0 % (0-6); Hematocrit 42.7 % (33.0-51.0); Hemoglobin 14.1 g/dL (11.5-16.0); IMMATURE GRAN ABSOLUTE AUTO 0.07 K/mm3 (0.00-0.10); IMMATURE GRAN PERCENT AUTO 1 % (0-1); LYMPHOCYTES ABSOLUTE AUTO 1.67 K/mm3 (0.84-5.20); LYMPHOCYTES PERCENT AUTO 14 % (21-46); MONOCYTES ABSOLUTE AUTO 1.14 K/mm3 (0.16-1.47); MONOCYTES PERCENT AUTO 9 % (4-13); Mean Corpuscular HGB 28.5 pg (26.0-34.0); Mean Corpuscular Volume 86 fL (80-100); Mean Platelet Volume 10.6 fL (9.1-12.4); NEUTROPHILS ABSOLUTE AUTO 9.45 K/mm3 (1.96-9.15); NEUTROPHILS PERCENT AUTO 76 % (41-73); Platelet Count 357 K/mm3 (150-400); RDW Coefficient Variation 13.4 % (11.7-14.2); Red Blood Cell Count 4.95 M/mm3 (3.80-5.20); White Blood Cell Count 12.38 K/mm3 (4.00-11.30)
[2023-08-21 17:01] LABS: Albumin, Blood 2.1 g/dL (3.4-5.0); Albumin/Globulin Ratio 0.4 (0.8-1.8); Bilirubin, Total 0.5 mg/dL (0.1-1.0); Bun/Creatinine Ratio 12.4 (12.0-20.0); Calcium, Blood 8.8 mg/dL (8.5-10.1); Creatinine, Blood 0.64 mg/dL (0.40-1.00); Globulin, Blood 5.5 g/dL (2.2-4.0); Potassium, Blood 3.7 mmol/L (3.5-5.5); Total Protein, Blood 7.6 g/dL (6.4-8.2)
[2023-08-21] MEDS ORDERED: ATOR40TA PO (19:51)
[2023-08-21] MEDS ORDERED: DEXA4 PO (19:51)
[2023-08-21] MEDS ORDERED: LEVETIRACETAM50014 PO (19:51)
[2023-08-21] MEDS ORDERED: METF500 PO (19:52)
[2023-08-21] MEDS ORDERED: LISI20 PO (19:52)
[2023-08-21] MEDS ORDERED: DIAZEPAM2 M2 PO (19:53)
[2023-08-21] MEDS ORDERED: ESCI10 PO (19:53)
[2023-08-21] MEDS ORDERED: NEURONTIN300 MG PO (19:54)
[2023-08-21] MEDS ORDERED: FLUO10 PO (19:54)
[2023-08-21] MEDS ORDERED: VARENICLINE TART1 M2 PO (19:55)
[2023-08-21 20:23] LABS: Source, Urine Clean Catch
[2023-08-21 20:29] LABS: Blood, Urine Neg (Neg); Glucose Qualitative, Urine Neg (Neg); Ketones, Urine Neg (Neg); Leukocyte Esterase, Urine 1+ (Neg); Nitrite, Urine Neg (Neg); Protein, Urine 2+ (Neg); Specific Gravity, Urine 1.005 (1.003-1.022); Urobilinogen, Urine 1+ (Normal)
[2023-08-21 20:39] LABS: Appearance, Urine Hazy (Clear); Bilirubin, Urine 1+ (Neg); Color, Urine Yellow (P-Yellow)
[2023-08-21 20:41] LABS: Amorphous Light (0-Heavy); Bacteria Few /hpf; Red Blood Cells, Urine Not Seen /hpf (0-2); Squamous Epithelial Cells Many /hpf (Few); White Blood Cells, Urine 0-2 /hpf (0-5)
[2023-08-21 23:12] VITALS: BP 117/90
[2023-08-21 23:20] LABS: Prothrombin Time Results 13.4 Sec (9.7-11.5)
[2023-08-21 23:22] LABS: Anti-Xa UFH, PHA Monitoring >1.50 IU/mL
[2023-08-22] MEDS ORDERED: METO10 PO (00:42)
[2023-08-22 03:20] VITALS: BP 111/87
[2023-08-22 06:43] LABS: BASOPHILS ABSOLUTE AUTO 0.05 K/mm3 (0.00-0.23); BASOPHILS PERCENT AUTO 0 % (0-2); EOSINOPHILS ABSOLUTE AUTO 0.03 K/mm3 (0.00-0.68); EOSINOPHILS PERCENT AUTO 0 % (0-6); Hematocrit 39.5 % (33.0-51.0); Hemoglobin 12.8 g/dL (11.5-16.0); IMMATURE GRAN ABSOLUTE AUTO 0.05 K/mm3 (0.00-0.10); IMMATURE GRAN PERCENT AUTO 0 % (0-1); LYMPHOCYTES ABSOLUTE AUTO 2.33 K/mm3 (0.84-5.20); LYMPHOCYTES PERCENT AUTO 20 % (21-46); MONOCYTES ABSOLUTE AUTO 1.08 K/mm3 (0.16-1.47); MONOCYTES PERCENT AUTO 9 % (4-13); Mean Corpuscular HGB 28.4 pg (26.0-34.0); Mean Corpuscular HGB Conc 32.4 g/dL (31.5-36.5); Mean Corpuscular Volume 88 fL (80-100); Mean Platelet Volume 10.7 fL (9.1-12.4); NEUTROPHILS ABSOLUTE AUTO 8.25 K/mm3 (1.96-9.15); NEUTROPHILS PERCENT AUTO 70 % (41-73); Platelet Count 330 K/mm3 (150-400); RDW Coefficient Variation 13.5 % (11.7-14.2); RDW Standard Deviation 43.3 fL (35.1-46.3); Red Blood Cell Count 4.51 M/mm3 (3.80-5.20); White Blood Cell Count 11.79 K/mm3 (4.00-11.30)
[2023-08-22 07:10] LABS: Albumin, Blood 2.1 g/dL (3.4-5.0); Albumin/Globulin Ratio 0.4 (0.8-1.8); Bilirubin, Total 0.4 mg/dL (0.1-1.0); Bun/Creatinine Ratio 12.4 (12.0-20.0); Calcium, Blood 8.6 mg/dL (8.5-10.1); Creatinine, Blood 0.65 mg/dL (0.40-1.00); Globulin, Blood 5.2 g/dL (2.2-4.0); Potassium, Blood 3.7 mmol/L (3.5-5.5); Total Protein, Blood 7.3 g/dL (6.4-8.2)
[2023-08-22 07:25] VITALS: BP 104/83
--- NOTE | 2023-08-22 07:30 | NUR ---
SHIFT SUMMARY A/OX3. CONFUSION AT TIMES. POOR HISTORIAN. ROOM AIR. UNCONTROLLED PAIN TO RUQ BUT ALSO GENERALIZED PAIN R/T METASTASIS. SURGICAL CONSULT THIS AM CALLED. HEPARIN GTT PER PHARMACY STARTED AT 18 UNITS/KG/HR TO RAC. PT HAD A SECOND ULTRASOUND GUIDED IV FOR HER ONE TIME DOSE OF ALBUMIN BUT IV INFILTRATED. ASKED MY INSURANCE SALES SUPERVISOR STACEY IF SHE WAS ABLE TO PLACE A POWERGLIDE BUT SHE DID NOT HAVE TIME THIS AM. PASSED ONTO DAY SHIFT NEED FOR SECOND IV. UNABLE TO START CONTINUOUS INFUSION OF NORMAL SALINE. PT HAS BEEN NPO PENDING SURGERY CONSULT. TELE ON SINUS RHYTHM. ABLE TO MAKE NEEDS KNOWN. CALL LIGHT IN REACH. BED LOCKED IN LOW POSITION
[2023-08-22 15:56] VITALS: BP 124/95
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
[2023-08-22 19:18] VITALS: BP 121/90
--- NOTE | 2023-08-22 19:48 | NUR ---
SHIFT SUMMARY PT NPO FOR POSSIBLE SURGICAL INTERVENTION. DR MANNING WAS NOT ABLE TO CONSULT ON PT TODAY. PT IS SCHEDULED TO HAVE HEPATOBILIAR SYSTEM IMAGINING BY [facility]. PT SOMNOLENT MOST OF THE DAY. PT DID C/O PAIN AND WAS MEDICATED PER EMAR. FAMILY HAS BEEN AT BEDSIDE T/O DAY. HEPARIN INFUSING. VSS. BED IN LOWEST POSITION AND CALL LIGHT IN REACH.
[2023-08-23 04:03] VITALS: BP 126/84
[2023-08-23 05:02] LABS: Hematocrit 40.8 % (33.0-51.0); Hemoglobin 13.4 g/dL (11.5-16.0); Mean Platelet Volume 11.6 fL (9.1-12.4); Platelet Count 395 K/mm3 (150-400)
--- NOTE | 2023-08-23 05:03 | NUR ---
SHIFT SUMMARY: PT VERY LETHARGIC FOR MUCH OF THE SHIFT, MUCH MORE AWAKE IN THE MANAGER OF TRAINING HOURS. PT IS A ONE PERSON ASSIST TO THE BSC. PT CALLS APPROOPRIATELY. PT SHOWED S/S FOR PAIN ON SEVERAL OCCASIONS, MEDICATING PER EMAR. PT DENIES NAUSEA, VOMITING, AND SOB. HIDA SCAN SCHEDULED FOR THIS AM, PT KEPT NPO AFTER MIDNIGHT. NO ACUTE CHANGES OR COMPLICATIONS. BED IN LOW POSITION, CALL LIGHT WITHIN REACH. WILL CONTINUE TO MONITOR AND REPORT TO DAY NURSE.
[2023-08-23 07:14] VITALS: BP 120/85
--- NOTE | 2023-08-23 12:49 | NUR ---
PATIENT'S IV IN THE RAC STARTED LEAKING AROUND 0900. IV REMOVED AND NO SUCCESS IN PLACING A NEW ONE. SHAW CLEMONS CHANGED THE DRESSING IN [place]KE POWERGLIDE. POWERGLIDE CONTINUES TO ALARM DISTAL OCCLUSION. HEPARIN PAUSED FOR THE HYDASCAN PER DR BRAY.
[2023-08-23 15:51] VITALS: BP 144/98
--- NOTE | 2023-08-23 17:39 | NUR ---
SHIFT SUMMARY A&OX3-4, COOPERATIVE WITH CARE, OCCASIONAL CONFUSION. LETHARGICE T/O THE SHIFT. HIDASCAN WAS POSITIVE TODAY. DR BURRELL REPORTED THAT RADIOLOGY WILL BE PUTTING A DRAIN IN AND PATIENT IS TO BE NPO AT MIDNIGHT. RADIOLOGY DOES NOT HAVE ANY PAPERWORK FOR THE PATIENT AT THIS POINT. C/O OF 1010 PAIN TO RUQ. MEDICATED WITH DILAUDID AT 0800, FENTANYL AT 1405, AND DILAUDID AT 1439. PATIENT IS VERY WEAK WHEN STANDING, IPA TO BSC. NO ACUTE EVENTS THIS SHIFT. PATIENT CURRENTLY EATING DINNER. DAUGHTER AT BEDSIDE. CALL LIGHT WITHIN REACH.
[2023-08-23 20:22] VITALS: BP 123/93
--- NOTE | 2023-08-23 21:53 | NUR ---
CALLED PHARMACY NEW POWERGLIDE IS NOW IN PLACE. REI INFUSED. HEPARIN NOW INFUSING PER PHARMACY AT DESIRED RATE.
--- NOTE | 2023-08-23 22:13 | NUR ---
ADMIT NOTE HANDOFF RECEIVED FROM CALENDER MACHINE OPERATOR HELPER GRACE. PT ARRIVED TO FLOOR VIA GURNEY. PT ORIENTED TO UNIT. PERSONAL POSSESSIONS WITH PATIENT. TELEMETRY IN PLACE. CALL BUTTON WITHIN REACH.
--- NOTE | 2023-08-24 04:25 | NUR ---
SHIFT SUMMARY ADMITTED FOR GALLBLADDER COLIC. FULL CODE. HEPARIN DRIP INFUSING. POWERGLIDE ACCESS GOTTEN THIS SHIFT FOR IV INFUSIONS. TELEMETRY: NSR @ 93 BPM. RECENT PE ONE MONTH AGO. ON ELIQUIS. HIDA SCAN PERFORMED YESTERDAY. SHE IS WEAK AND LETHARGIC THIS SHIFT. NPO SINCE MIDNIGHT PER NURSING HANDOFF REPORT. HX: METASTATIC LUNG CANCER TO BRAIN AND LIVER, CHEMO THERAPY.
[2023-08-24 05:02] LABS: BASOPHILS ABSOLUTE AUTO 0.03 K/mm3 (0.00-0.23); BASOPHILS PERCENT AUTO 0 % (0-2); EOSINOPHILS ABSOLUTE AUTO 0.04 K/mm3 (0.00-0.68); EOSINOPHILS PERCENT AUTO 1 % (0-6); Hematocrit 35.2 % (33.0-51.0); Hemoglobin 11.8 g/dL (11.5-16.0); IMMATURE GRAN ABSOLUTE AUTO 0.04 K/mm3 (0.00-0.10); IMMATURE GRAN PERCENT AUTO 1 % (0-1); LYMPHOCYTES PERCENT AUTO 19 % (21-46); MONOCYTES ABSOLUTE AUTO 0.72 K/mm3 (0.16-1.47); MONOCYTES PERCENT AUTO 8 % (4-13); Mean Corpuscular HGB 28.6 pg (26.0-34.0); Mean Corpuscular HGB Conc 33.5 g/dL (31.5-36.5); Mean Corpuscular Volume 85 fL (80-100); Mean Platelet Volume 11.6 fL (9.1-12.4); NEUTROPHILS ABSOLUTE AUTO 6.16 K/mm3 (1.96-9.15); NEUTROPHILS PERCENT AUTO 72 % (41-73); Platelet Count 333 K/mm3 (150-400); RDW Coefficient Variation 13.2 % (11.7-14.2); RDW Standard Deviation 40.9 fL (35.1-46.3); Red Blood Cell Count 4.12 M/mm3 (3.80-5.20); White Blood Cell Count 8.59 K/mm3 (4.00-11.30)
[2023-08-24 05:35] LABS: Albumin/Globulin Ratio 0.4 (0.8-1.8); Bilirubin, Total 0.5 mg/dL (0.1-1.0); Bun/Creatinine Ratio 10.6 (12.0-20.0); Calcium, Blood 8.4 mg/dL (8.5-10.1); Creatinine, Blood 0.66 mg/dL (0.40-1.00); Globulin, Blood 4.6 g/dL (2.2-4.0); Potassium, Blood 3.5 mmol/L (3.5-5.5); Total Protein, Blood 6.6 g/dL (6.4-8.2)
[2023-08-24 05:42] VITALS: BP 119/87
[2023-08-24 07:25] VITALS: BP 119/87
[2023-08-24 16:07] VITALS: BP 117/84
--- NOTE | 2023-08-24 17:21 | NUR ---
SHIFT SUMMARY PATIENT MORE AWAKE THIS AFTERNOON. PATIENT SLEPT MOST OF THE MORNING BUT WAS AROUSABLE. PATIENT UP TO COMMODE TO VOID WITH MINIMAL ASSISTANCE WHEN AWAKE. PATIENT CONTINUES TO HAVE UPPER R ABDOMINAL PAIN ALONG WIHT BACK PAIN AND HEAD PAIN. DR. MAX CONSULTED TODAY AND UPDATED FAMILY AND PATIENT RELATED TO PROGRESS OF CANCER TREATMENT. PATIENT NPO MOST OF THE DAY FOR POSSIBLE SURGICAL INTERVENTION. SURGICAL PROCEDURE TO BE DONE TOMORROW.
[2023-08-24 19:52] VITALS: BP 121/88
[2023-08-25] VITALS (10 sets, daily range): BP systolic 127–144; BP diastolic 93–116
[2023-08-25 04:19] LABS: BASOPHILS ABSOLUTE AUTO 0.03 K/mm3 (0.00-0.23); BASOPHILS PERCENT AUTO 0 % (0-2); EOSINOPHILS ABSOLUTE AUTO 0.02 K/mm3 (0.00-0.68); EOSINOPHILS PERCENT AUTO 0 % (0-6); Hematocrit 34.3 % (33.0-51.0); Hemoglobin 11.5 g/dL (11.5-16.0); IMMATURE GRAN ABSOLUTE AUTO 0.06 K/mm3 (0.00-0.10); IMMATURE GRAN PERCENT AUTO 1 % (0-1); LYMPHOCYTES ABSOLUTE AUTO 1.88 K/mm3 (0.84-5.20); LYMPHOCYTES PERCENT AUTO 20 % (21-46); MONOCYTES ABSOLUTE AUTO 0.76 K/mm3 (0.16-1.47); MONOCYTES PERCENT AUTO 8 % (4-13); Mean Corpuscular HGB 28.5 pg (26.0-34.0); Mean Corpuscular HGB Conc 33.5 g/dL (31.5-36.5); Mean Corpuscular Volume 85 fL (80-100); Mean Platelet Volume 11.5 fL (9.1-12.4); NEUTROPHILS ABSOLUTE AUTO 6.55 K/mm3 (1.96-9.15); NEUTROPHILS PERCENT AUTO 71 % (41-73); Platelet Count 322 K/mm3 (150-400); RDW Coefficient Variation 13.4 % (11.7-14.2); RDW Standard Deviation 41.5 fL (35.1-46.3); Red Blood Cell Count 4.03 M/mm3 (3.80-5.20)
--- NOTE | 2023-08-25 04:25 | NUR ---
SHIFT SUMMARY ADMITTED FOR GALLBLADDER COLIC. FULL CODE. POSSIBLE SURGICAL INTERVENTION PLANNED FOR TODAY. HEPARIN DRIP INFUSING. POWERGLIDE IN PLACE. NPO SINCE MIDNIGHT IN PREPARATION. 1 ASSIST TO BSC. ON RA. PAIN MEDICATION GIVEN THIS SHIFT. PHARMACY IS MANAGING HEPARIN, MONITORING LABS. SHE IS EXTREMELY WEAK.
[2023-08-25 04:39] LABS: Albumin/Globulin Ratio 0.5 (0.8-1.8); Bilirubin, Total 0.4 mg/dL (0.1-1.0); Bun/Creatinine Ratio 7.5 (12.0-20.0); Calcium, Blood 8.2 mg/dL (8.5-10.1); Creatinine, Blood 0.53 mg/dL (0.40-1.00); Globulin, Blood 4.4 g/dL (2.2-4.0); Potassium, Blood 3.3 mmol/L (3.5-5.5); Total Protein, Blood 6.4 g/dL (6.4-8.2)
--- NOTE | 2023-08-25 10:43 | NUR ---
DR MG CALLED ME TO INFORM ME NOT TO NOTIFY FOR IR CONSULT - HE HAS ALREADY SPOKEN TO IR.
--- NOTE | 2023-08-25 12:17 | NUR ---
MD CALL TELEPHONE ORDER FROM DR ASTORGA TO STOP HEPARIN GTT IN PREPARATION FOR CT PLACED DRAIN PLACEMENT. EAD BACK DONE. ENTERED INTO [employer].
--- NOTE | 2023-08-25 19:57 | NUR ---
SHIFT SUMMARY MS MILLER WENT TO CT SCAN FOR CHOLECYSTOSTOMY TUBE PLACEMENT TODAY. DURING PROCEDURE MEDICAL FLOOR STAFF WENT DOWN TO CT SCAN AND ADMINISTERED 2MG DILAUDID IV AND THEN A SECOND TIME FOR 50MCG FENTANYL IV. SHE RETURNED TO MEDICAL FLOOR AT AROUND 1635 WITH A LOT OF PAIN AT DRAIN SITE. DR ASTORGA CALLED AND NOTIFIED AND 1 TIME DOSE OF DILAUDID 2MG IV GIVEN WHICH HELPED TO EASE THE SHARP PAIN AND LEFT HER WITH A CONSTANT DISCOMFORT. MINIMAL BLEEDING UNDER TEGADERM AT NEW DRAIN SITE. SUCTION ON DRAIN INTACT AND DARK BROWN OUTPUT INTO DRAIN BAG. MS MILLER IS ABLE TO ANSWER ORIENTATION QUESTIONS. HER FAMILY SAID THAT SHE GETS CONFUSED AT TIMES BUT WAS NOTED TO HAVE APPROPRIATE CONVERSATION TODAY THOUGH SHE WAS VERY SLEEPY AND DIFFICULT TO AROUND AT TIMES. ON TELE IN SR, NO ADVERSE EVENT CALLS FROM BILL CHECKER. SUPPORTIVE FAMILY AT BEDSIDE FOR MOST OF THE DAY. BED LOW, CALL LIGHT IN REACH.
[2023-08-26 03:10] VITALS: BP 135/101
[2023-08-26 05:47] LABS: BASOPHILS ABSOLUTE AUTO 0.03 K/mm3 (0.00-0.23); BASOPHILS PERCENT AUTO 0 % (0-2); EOSINOPHILS ABSOLUTE AUTO 0.01 K/mm3 (0.00-0.68); EOSINOPHILS PERCENT AUTO 0 % (0-6); Hematocrit 38.8 % (33.0-51.0); Hemoglobin 12.6 g/dL (11.5-16.0); IMMATURE GRAN ABSOLUTE AUTO 0.08 K/mm3 (0.00-0.10); IMMATURE GRAN PERCENT AUTO 1 % (0-1); LYMPHOCYTES ABSOLUTE AUTO 1.23 K/mm3 (0.84-5.20); LYMPHOCYTES PERCENT AUTO 13 % (21-46); MONOCYTES ABSOLUTE AUTO 0.63 K/mm3 (0.16-1.47); MONOCYTES PERCENT AUTO 7 % (4-13); Mean Corpuscular HGB 28.4 pg (26.0-34.0); Mean Corpuscular HGB Conc 32.5 g/dL (31.5-36.5); Mean Corpuscular Volume 87 fL (80-100); NEUTROPHILS ABSOLUTE AUTO 7.31 K/mm3 (1.96-9.15); NEUTROPHILS PERCENT AUTO 79 % (41-73); Platelet Count 296 K/mm3 (150-400); RDW Coefficient Variation 13.5 % (11.7-14.2); RDW Standard Deviation 43.2 fL (35.1-46.3); Red Blood Cell Count 4.44 M/mm3 (3.80-5.20); White Blood Cell Count 9.29 K/mm3 (4.00-11.30)
--- NOTE | 2023-08-26 06:06 | NUR ---
SHIFT SUMMMARY PT IS POD#1 FOR A BILIARY DRAIN THAT WAS PLACED ON 08/25/23. PT HAS BEEN PAINFUL FOR MOST OF THE SHIFT AND HAS BEEN MEDICATED PER EMAR WITH IV MEDICATION. VITAL SIGNS HAVE BEEN STABLE AND THE TELEMETRY DESK REPORTED SINUS RHYTHM FOR THE PT. PT CAN BE CONFUSED AT TIMES, BUT CAN BE RE-ORIENTED EASILY. PT IS A LITTLE UNSTABLE TO THE BEDSIDE COMMODE AND WILL NEED 1-2 STAFF TO ASSIST WITH STABILITY AND CLEANING OF THE PT AFTER COMMODE USE. BED IS IN LOWEST POSITION, CALL LIGHT IS WITHIN REACH.
[2023-08-26 06:23] LABS: Albumin, Blood 2.2 g/dL (3.4-5.0); Albumin/Globulin Ratio 0.5 (0.8-1.8); Bilirubin, Total 0.5 mg/dL (0.1-1.0); Bun/Creatinine Ratio 8.4 (12.0-20.0); Calcium, Blood 8.5 mg/dL (8.5-10.1); Creatinine, Blood 0.48 mg/dL (0.40-1.00); Globulin, Blood 4.7 g/dL (2.2-4.0); Potassium, Blood 3.6 mmol/L (3.5-5.5); Total Protein, Blood 6.9 g/dL (6.4-8.2)
[2023-08-26 07:23] VITALS: BP 145/101
[2023-08-26 16:01] VITALS: BP 144/106
--- NOTE | 2023-08-26 17:22 | NUR ---
SHIFT SUMMARY PT AOX3-4, CALLS AND MAKES HER NEEDS KNOWN. PAIN MEDICATIONS CHANGED THIS SHIFT PER THE EMAR AND THE PT IS TOLERATING THEM WELL. PT APPEARED VERY PAINFUL AT THE START OF THE SHIFT BUT PAIN HAS IMPROVED AT THE SHIFT PROGRESSED. PT HAS BEEN ABLE TO SLEEP SOME TODAY. BED BATH AND LINEN CHANGED COMPLETED. FAMILY AT THE BS TODAY. CALL LIGHT WITHIN REACH, BED IN THE LOWEST POSITION. WILL REPORT TO ONCOMING NURSE.
[2023-08-26 19:16] VITALS: BP 135/96
[2023-08-27 02:09] VITALS: BP 122/95
--- NOTE | 2023-08-27 06:34 | NUR ---
SHIFT SUMMERY, PT VERY PAINFULL, PT BEING MEDICATED VERY OFFTEN. PT SEEMED ABLE TO SLEEP LAST NIGHT. UP TO BSC TO VOID X 3. CALL LIGHT IN REACH.
[2023-08-27 06:57] LABS: BASOPHILS ABSOLUTE AUTO 0.01 K/mm3 (0.00-0.23); BASOPHILS PERCENT AUTO 0 % (0-2); EOSINOPHILS ABSOLUTE AUTO 0.02 K/mm3 (0.00-0.68); EOSINOPHILS PERCENT AUTO 0 % (0-6); Hematocrit 34.3 % (33.0-51.0); Hemoglobin 11.7 g/dL (11.5-16.0); IMMATURE GRAN ABSOLUTE AUTO 0.07 K/mm3 (0.00-0.10); IMMATURE GRAN PERCENT AUTO 1 % (0-1); LYMPHOCYTES ABSOLUTE AUTO 1.49 K/mm3 (0.84-5.20); LYMPHOCYTES PERCENT AUTO 17 % (21-46); MONOCYTES ABSOLUTE AUTO 0.73 K/mm3 (0.16-1.47); MONOCYTES PERCENT AUTO 8 % (4-13); Mean Corpuscular HGB Conc 34.1 g/dL (31.5-36.5); Mean Corpuscular Volume 85 fL (80-100); Mean Platelet Volume 11.4 fL (9.1-12.4); NEUTROPHILS ABSOLUTE AUTO 6.65 K/mm3 (1.96-9.15); NEUTROPHILS PERCENT AUTO 74 % (41-73); Platelet Count 252 K/mm3 (150-400); RDW Coefficient Variation 13.4 % (11.7-14.2); RDW Standard Deviation 41.8 fL (35.1-46.3); Red Blood Cell Count 4.03 M/mm3 (3.80-5.20); White Blood Cell Count 8.97 K/mm3 (4.00-11.30)
[2023-08-27 07:07] LABS: Albumin, Blood 2.1 g/dL (3.4-5.0); Albumin/Globulin Ratio 0.5 (0.8-1.8); Bilirubin, Total 0.2 mg/dL (0.1-1.0); Bun/Creatinine Ratio 9.2 (12.0-20.0); Calcium, Blood 8.2 mg/dL (8.5-10.1); Creatinine, Blood 0.54 mg/dL (0.40-1.00); Globulin, Blood 4.3 g/dL (2.2-4.0); Potassium, Blood 3.3 mmol/L (3.5-5.5); Total Protein, Blood 6.4 g/dL (6.4-8.2)
[2023-08-27 07:34] VITALS: BP 138/104
[2023-08-27 14:38] VITALS: BP 133/95
--- NOTE | 2023-08-27 18:19 | NUR ---
SHIFT SUMMARY PT AOX3, 1 ASSIST WITH THE FWW TO THE BATHROOM. MEDICATED FOR PAIN PER THE EMAR, STATES MORE RELIEF TODAY THAN YESTERDAY. FAMILY HAS BEEN AT THE BS TODAY. PT HAS BEEN SLEEPING MOST OF THE AFTERNOON. SHE CALLS WELL AND MAKES HER NEEDS KNOWN. POTASSIUM REPLACEMENT GIVEN THIS AM. CALL LIGHT WITHIN REACH, BED IN THE LOWEST POSITION. WILL REPORT TO ONCOMING NURSE.
[2023-08-27 19:09] VITALS: BP 118/100
[2023-08-28 02:55] VITALS: BP 126/104
[2023-08-28 05:10] LABS: BASOPHILS ABSOLUTE AUTO 0.02 K/mm3 (0.00-0.23); BASOPHILS PERCENT AUTO 0 % (0-2); EOSINOPHILS ABSOLUTE AUTO 0.03 K/mm3 (0.00-0.68); EOSINOPHILS PERCENT AUTO 0 % (0-6); Hematocrit 36.4 % (33.0-51.0); Hemoglobin 12.1 g/dL (11.5-16.0); IMMATURE GRAN ABSOLUTE AUTO 0.11 K/mm3 (0.00-0.10); IMMATURE GRAN PERCENT AUTO 1 % (0-1); LYMPHOCYTES ABSOLUTE AUTO 1.56 K/mm3 (0.84-5.20); LYMPHOCYTES PERCENT AUTO 19 % (21-46); MONOCYTES ABSOLUTE AUTO 0.81 K/mm3 (0.16-1.47); MONOCYTES PERCENT AUTO 10 % (4-13); Mean Corpuscular HGB 28.6 pg (26.0-34.0); Mean Corpuscular HGB Conc 33.2 g/dL (31.5-36.5); Mean Corpuscular Volume 86 fL (80-100); Mean Platelet Volume 10.9 fL (9.1-12.4); NEUTROPHILS ABSOLUTE AUTO 5.91 K/mm3 (1.96-9.15); NEUTROPHILS PERCENT AUTO 70 % (41-73); Platelet Count 289 K/mm3 (150-400); RDW Coefficient Variation 13.7 % (11.7-14.2); RDW Standard Deviation 42.7 fL (35.1-46.3); Red Blood Cell Count 4.23 M/mm3 (3.80-5.20); White Blood Cell Count 8.44 K/mm3 (4.00-11.30)
[2023-08-28 05:36] LABS: Albumin, Blood 2.3 g/dL (3.4-5.0); Albumin/Globulin Ratio 0.5 (0.8-1.8); Bilirubin, Total 0.4 mg/dL (0.1-1.0); Bun/Creatinine Ratio 7.6 (12.0-20.0); Calcium, Blood 8.6 mg/dL (8.5-10.1); Creatinine, Blood 0.53 mg/dL (0.40-1.00); Globulin, Blood 4.4 g/dL (2.2-4.0); Potassium, Blood 3.5 mmol/L (3.5-5.5); Total Protein, Blood 6.7 g/dL (6.4-8.2)
[2023-08-28 07:35] VITALS: BP 143/97
[2023-08-28 15:34] VITALS: BP 122/92
--- NOTE | 2023-08-28 17:38 | NUR ---
SHIFT SUMMARY: PT IS A 62 YEAR OLD FEMALE HERE FOR 1 DAY POST BILIARY DRAIN PLACEMENT FOR CHOLECYSTITIS WITH STONE AND SLUDGE. SHE HAS METATSTATIC CANCER: LIVER, BRAIN, LUNG. PANCREAS, ABD, AND GALLBLADDER. SHE HAS BEEN C/O PAIN MAINLY IN HER BILIARY DRAIN SITE. STATES THAT IT WILKINS. BEEN MANAGING PAIN WITH MEDICATIONS IN EMAR. PAIN LEVEL REMAINS AT 7-8/10 WITH INTERVENTIONS. DRAIN IS DRAINING DARK BROWN SLUDGE BILE. SHE USES HER CALL LIGHT APPROPRIATELY, IS A 1 PERSON ASSIST WITH FWW TO THE BATHROOM AND BEDSIDE CHAIR. HER SON AND DAUGHTER COME VISIT THROUGHOUT THE DAY. SHE IS CURRENTLY IN HER BEDSIDE CHAIR EATING DINNER, CALL LIGHT WITHIN REACH, NO SIGNS OR SYMPTOMS OF DISTRESS. PLAN OF CARE ONGOING.
[2023-08-28 19:31] VITALS: BP 134/99
--- NOTE | 2023-08-29 02:26 | NUR ---
SHIFT SUMMERY, PT SLEEPING MOST OF SHIFT. PT UNHAPPY HER OXY CAHNGD FROM Q 4 HRS PRN TO Q 6 HRS PRN. BUT PT SEEMING TO TOLERATE CHANGE SO FAR. PT GOING TO BR WITH 1 ASSIST. PT NOW SLEEPING IN BED, CALL LIGHT IN REACH BED ALARM ON.
[2023-08-29 04:27] VITALS: BP 126/107
[2023-08-29 07:57] VITALS: BP 136/111
--- NOTE | 2023-08-29 17:08 | NUR ---
SHIFT SUMMARY PT AXO, PLEASANT AND COOPERATIVE WITH CARE THOUGH FORGETFUL AND SLEEPING THROUGHOUT THE DAY. PT WOULD WAKE AND COMPLAIN OF PAIN, MEDICATED PER EMAR. NEW ORDER FOR FENTANTL PATCH PLACED THIS SHIFT. UP WITH 1 ASSIST TO BSC WITH GB AND FWW. PT TOLERATED WELL. VSS. NO ACUTE CHANGES THIS SHIFT. BED IN LOW POSITION, CALL LIGHT WITHIN REACH.
[2023-08-29 17:57] VITALS: BP 123/90
[2023-08-29 19:28] VITALS: BP 122/95
--- NOTE | 2023-08-30 04:09 | NUR ---
SHIFT SUMMARY PATIENT IS ALERT AND ORIENTED. PATIENT HAS HAD NO ACUTE EVENTS THIS SHIFT. VITAL SIGNS REVIEWED. PATIENT HAS BEEN PLEASENT AND COOPERATIVE THIS SHIFT. PATIENT HAS COMPLAINED OF PAIN THROUGHOUT SHIFT. PATIENT REMINDED OF NEW AND STRONGER PAIN PATCH THAT WAS PLACED EARLIER IN DAY. PATIENT HAS BEEN MEDICATED FOR PRN PAIN ONCE THIS SHIFT. PATIENT HAS NOT COMPLAINED OF SOB, NAUSEA OR VOMITTING THIS SHIFT. PATIENT HAS HAD A LARGE BM THIS SHIFT WITH 1 PERSON ASSIST TO BSC. BED IN LOCKED AND LOWEST POSITION. CALL LIGHT IN PLACE. WILL MONITOR UNTIL SHIFT CHANGE.
[2023-08-30 04:41] VITALS: BP 141/102
[2023-08-30 05:01] LABS: Hemoglobin 12.8 g/dL (11.5-16.0); Mean Corpuscular HGB 28.3 pg (26.0-34.0); Mean Corpuscular HGB Conc 32.8 g/dL (31.5-36.5); Mean Corpuscular Volume 86 fL (80-100); Mean Platelet Volume 10.3 fL (9.1-12.4); Platelet Count 273 K/mm3 (150-400); RDW Coefficient Variation 13.8 % (11.7-14.2); RDW Standard Deviation 43.2 fL (35.1-46.3); Red Blood Cell Count 4.52 M/mm3 (3.80-5.20); White Blood Cell Count 8.99 K/mm3 (4.00-11.30)
[2023-08-30 05:32] LABS: Bun/Creatinine Ratio 15.4 (12.0-20.0); Calcium, Blood 8.5 mg/dL (8.5-10.1); Creatinine, Blood 0.46 mg/dL (0.40-1.00); Potassium, Blood 3.3 mmol/L (3.5-5.5)
[2023-08-30 07:44] VITALS: BP 118/91
[2023-08-30 16:04] VITALS: BP 122/98
--- NOTE | 2023-08-30 18:41 | NUR ---
SUMMARY- AAOX4 THIS SHIFT, BUT LETHARGIC AND REFUSED PT TODAY. NO OUTPUT FROM BILIARY DRAIN THIS SHIFT. PAIN CONTROLLED WITH EMAR MEDS WELL. PT DID SIT ON THE EDGE OF THE BED AND [place] [facility] [place]1 [place]. PT HAD MINIMAL APPETITE TODAY.
[2023-08-30 19:15] VITALS: BP 133/94
[2023-08-31 03:57] VITALS: BP 114/90
--- NOTE | 2023-08-31 04:28 | NUR ---
SHIFT SUMMARY WOOD WAS ALERT AND ORIENTED X3-4 AT START OF SHIFT AND COOPERATIVE WITH CARE. PT PRIMARY COMPLAINT AT THIS TIME IS PAIN MANAGEMENT. SHE SEEMS TO GET ABOUT 2-3 HOURS OF RELIEF AFTER GETTING PAIN MEDS. I CONTANCTED THE HOSPITALIST AROUND 0400 TO DISCUSS PAIN MANAGEMENT, DR. COX APPROVED AN EARLY ADMINISTRATION OF PRN PAIN MED, AND INSTRUCTED ME TO PASS OFF THE ISSUE TO BE RESOLVED ON DAY SHIFT. PT DENIES C/P/PRESSURE AND SOB. PT'S FREIDA DRAIN IS PATENT AND DRAINING DARK GREEN LIQUID. NO ACUTE EVENTS TONIGHT, PT RESTING IN BED AT A LOW POSITION.
[2023-08-31 06:13] LABS: Albumin, Blood 2.3 g/dL (3.4-5.0); Albumin/Globulin Ratio 0.5 (0.8-1.8); Bilirubin, Total 0.4 mg/dL (0.1-1.0); Bun/Creatinine Ratio 18.4 (12.0-20.0); Calcium, Blood 8.4 mg/dL (8.5-10.1); Creatinine, Blood 0.49 mg/dL (0.40-1.00); Globulin, Blood 4.3 g/dL (2.2-4.0); Potassium, Blood 2.9 mmol/L (3.5-5.5); Total Protein, Blood 6.6 g/dL (6.4-8.2)
[2023-08-31 07:51] VITALS: BP 124/94
[2023-08-31] MEDS ORDERED: DOCU100 PO (13:34)
[2023-08-31] MEDS ORDERED: SENNA LAXATIVE8.6 MG PO (13:37)
[2023-08-31] MEDS ORDERED: TRAZ50 PO (13:37)
[2023-08-31] MEDS ORDERED: NALOXONE HCL4 MG (13:37)
[2023-08-31 15:47] VITALS: BP 119/88
--- NOTE | 2023-08-31 16:26 | NUR ---
DC- PT LEFT VIA TRANSPORT AT 1615 FOR [facility]. PT IN STABLE CONDITION. PT LEFT WITH ALL BELONGINGS. REPORT CALLED TO NURSING AND REHAB TO [facility].
== END 2023-08-31 16:08 | DRG 445 ==
LOC: ER 16:23 → SURS 16:24 → MEDS 16:24
PROVIDERS: Emergency Medicine; Family Medicine; Student in an Organized Health Care Education/Training Program; ADMIT Internal Medicine
PROC: 0F9430Z Drainage of Gallbladder with Drainage Device, Percutaneous Approach (ICD-10-PCS; principal; 2023-08-25)
DX: K80.10 Calculus of gallbladder with chronic cholecystitis without obstruction (principal); C34.11 Malignant neoplasm of upper lobe, right bronchus or lung; C78.7 Secondary malignant neoplasm of liver and intrahepatic bile duct; C7A.1 Malignant poorly differentiated neuroendocrine tumors; C79.31 Secondary malignant neoplasm of brain; G30.0 Alzheimer's disease with early onset; F02.80 Dementia in other diseases classified elsewhere, unspecified severity, without behavioral disturbance, psychotic disturbance, mood disturbance, and anxiety; E87.6 Hypokalemia; I10 Essential (primary) hypertension; J45.909 Unspecified asthma, uncomplicated; E78.5 Hyperlipidemia, unspecified; E11.40 Type 2 diabetes mellitus with diabetic neuropathy, unspecified; M19.90 Unspecified osteoarthritis, unspecified site; F17.210 Nicotine dependence, cigarettes, uncomplicated; Z91.038 Other insect allergy status; Z91.040 Latex allergy status; Z79.01 Long term (current) use of anticoagulants; Z86.711 Personal history of pulmonary embolism; Z28.21 Immunization not carried out because of patient refusal; Z79.84 Long term (current) use of oral hypoglycemic drugs
CPT/HCPCS: 36415; 71045; 74177; 75989; 76705; 78226; 80048; 80053; 81001; 83690; 83880; 85014; 85018; 85025; 85027; 85049; 85520; 85610; 85730; 87070; 87205; 94640; 94664; 94760; 96365; 96366; 96368; 96374-59; 96375; 96376; 97161; 97166; 97530; 97535; 99285-25; A9270; A9537; C1751; C9113; G0378; J0696; J0780; J1170; J1644; J1650; J1885; J1953; J2405; J3010; J3360; J3480; J7050; P9047; Q9967

== ENCOUNTER 2023-09-17 09:23 | Emergency (ER) | payer MEDICARE, OTHER ==
[~2023-09-17] VITALS: Ht 167.6 cm; Wt 83.9 kg
[~2023-09-17 09:23] MED LIST changes: +ATOR40TA PO; +DEXA4 PO; +DIAZEPAM2 M2 PO; +ESCI10 PO; +FLUO10 PO; +LEVETIRACETAM50014 PO; +NALOXONE HCL4 MG; +SENNA LAXATIVE8.6 MG PO; +TRAZ50 PO; +VARENICLINE TART1 M2 PO
[2023-09-17 09:52] LABS: BASOPHILS ABSOLUTE AUTO 0.03 K/mm3 (0.00-0.23); BASOPHILS PERCENT AUTO 0 % (0-2); Hematocrit 49.4 % (33.0-51.0); Hemoglobin 16.5 g/dL (11.5-16.0); LYMPHOCYTES ABSOLUTE AUTO 2.21 K/mm3 (0.84-5.20); LYMPHOCYTES PERCENT AUTO 12 % (21-46); MONOCYTES ABSOLUTE AUTO 0.38 K/mm3 (0.16-1.47); MONOCYTES PERCENT AUTO 2 % (4-13); Mean Corpuscular HGB 28.4 pg (26.0-34.0); Mean Corpuscular HGB Conc 33.4 g/dL (31.5-36.5); Mean Corpuscular Volume 85 fL (80-100); Mean Platelet Volume 10.8 fL (9.1-12.4); Platelet Count 541 K/mm3 (150-400); RDW Coefficient Variation 13.8 % (11.7-14.2); RDW Standard Deviation 42.5 fL (35.1-46.3); Red Blood Cell Count 5.81 M/mm3 (3.80-5.20); White Blood Cell Count 17.94 K/mm3 (4.00-11.30)
[2023-09-17 09:56] LABS: Source, Urine Clean Catch
[2023-09-17 09:57] LABS: EOSINOPHILS ABSOLUTE AUTO 1.76 K/mm3 (0.00-0.68); EOSINOPHILS PERCENT AUTO 10 % (0-6); IMMATURE GRAN ABSOLUTE AUTO 0.11 K/mm3 (0.00-0.10); IMMATURE GRAN PERCENT AUTO 1 % (0-1); NEUTROPHILS ABSOLUTE AUTO 13.45 K/mm3 (1.96-9.15); NEUTROPHILS PERCENT AUTO 75 % (41-73)
[2023-09-17 10:04] LABS: Appearance, Urine Hazy (Clear); Blood, Urine Neg (Neg); Color, Urine Yellow (P-Yellow); Glucose Qualitative, Urine Neg (Neg); Ketones, Urine 1+ (Neg); Leukocyte Esterase, Urine Neg (Neg); Nitrite, Urine Neg (Neg); Protein, Urine 2+ (Neg); Specific Gravity, Urine 1.025 (1.003-1.022); Urobilinogen, Urine NORM (Normal)
[2023-09-17 10:05] LABS: Bilirubin, Urine 2+ (Neg)
[2023-09-17 10:13] LABS: Amorphous Light (0-Heavy); Bacteria Few /hpf; Granular Casts 0-2 /lpf (0); Mucus Light (0-Heavy); Red Blood Cells, Urine 0-2 /hpf (0-2); Squamous Epithelial Cells Few /hpf (Few)
[2023-09-17 10:14] LABS: Transitional Epithelial Cells Rare /hpf (0-Rare)
[2023-09-17] MEDS ORDERED: CAPECITABINE500 MG PO (10:15)
[2023-09-17] MEDS ORDERED: REMERON1510 PO (10:15)
[2023-09-17] MEDS ORDERED: FAMO20 (10:16)
[2023-09-17] MEDS ORDERED: ALPRAZOLAM0.5 M1 PO (10:20)
[2023-09-17 10:33] LABS: Albumin, Blood 2.4 g/dL (3.4-5.0); Albumin/Globulin Ratio 0.4 (0.8-1.8); Bilirubin, Total 0.9 mg/dL (0.1-1.0); Calcium, Blood 9.8 mg/dL (8.5-10.1); Creatinine, Blood 1.02 mg/dL (0.40-1.00); Globulin, Blood 6.4 g/dL (2.2-4.0); Potassium, Blood 3.7 mmol/L (3.5-5.5); Total Protein, Blood 8.8 g/dL (6.4-8.2)
[2023-09-17 12:02] VITALS: BP 112/92
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
== END 2023-09-17 13:28 | disposition home or self-care (01) ==
LOC: ER 09:23
PROVIDERS: Emergency Medicine
DX: R29.6 Repeated falls (principal); E86.0 Dehydration; Z85.89 Personal history of malignant neoplasm of other organs and systems; G20.A1 Parkinson's disease without dyskinesia, without mention of fluctuations; F02.80 Dementia in other diseases classified elsewhere, unspecified severity, without behavioral disturbance, psychotic disturbance, mood disturbance, and anxiety; E87.8 Other disorders of electrolyte and fluid balance, not elsewhere classified; D72.829 Elevated white blood cell count, unspecified; R74.8 Abnormal levels of other serum enzymes; G40.909 Epilepsy, unspecified, not intractable, without status epilepticus; F17.210 Nicotine dependence, cigarettes, uncomplicated; I10 Essential (primary) hypertension; J45.909 Unspecified asthma, uncomplicated; M19.90 Unspecified osteoarthritis, unspecified site; E11.9 Type 2 diabetes mellitus without complications; Z79.891 Long term (current) use of opiate analgesic; Z79.01 Long term (current) use of anticoagulants; Z79.899 Other long term (current) drug therapy; Z91.030 Bee allergy status; Z91.040 Latex allergy status
CPT/HCPCS: 70450; 80053; 81001; 85025; 96360; 99284-25; A9270; J7030

== ENCOUNTER 2023-09-24 07:15 | Emergency (ER) | payer MEDICARE, OTHER ==
[~2023-09-24] VITALS: Ht 165.1 cm; Wt 79.4 kg
[~2023-09-24 07:15] MED LIST changes: +ALPRAZOLAM0.5 M1 PO; +CAPECITABINE500 MG PO; +FAMO20; +REMERON1510 PO
[2023-09-24 12:30] VITALS: BP 90/76
== END 2023-09-24 13:14 | disposition home or self-care (01) ==
LOC: ER 07:15
DX: R41.82 Altered mental status, unspecified (principal); I10 Essential (primary) hypertension; J45.909 Unspecified asthma, uncomplicated; M19.90 Unspecified osteoarthritis, unspecified site; G30.9 Alzheimer's disease, unspecified; F02.80 Dementia in other diseases classified elsewhere, unspecified severity, without behavioral disturbance, psychotic disturbance, mood disturbance, and anxiety; Z91.030 Bee allergy status; Z79.01 Long term (current) use of anticoagulants; Z79.891 Long term (current) use of opiate analgesic; Z79.899 Other long term (current) drug therapy
CPT/HCPCS: 99285

== ENCOUNTER 2023-09-26 05:12 | Emergency (ER) | payer MEDICARE, OTHER ==
[~2023-09-26] VITALS: Ht 162.6 cm; Wt 81.7 kg
[2023-09-26 06:00] VITALS: BP 104/83
== END 2023-09-26 08:30 | disposition home or self-care (01) ==
LOC: ER 05:12
DX: R06.81 Apnea, not elsewhere classified (principal); C7A.8 Other malignant neuroendocrine tumors; C7B.8 Other secondary neuroendocrine tumors; I10 Essential (primary) hypertension; J45.909 Unspecified asthma, uncomplicated; E11.9 Type 2 diabetes mellitus without complications; G30.9 Alzheimer's disease, unspecified; F02.80 Dementia in other diseases classified elsewhere, unspecified severity, without behavioral disturbance, psychotic disturbance, mood disturbance, and anxiety; Z91.038 Other insect allergy status; Z91.040 Latex allergy status; Z79.899 Other long term (current) drug therapy; Z79.01 Long term (current) use of anticoagulants
CPT/HCPCS: 99284